=== PATIENT | male | born 1970 | race Caucasian/White ===

== ENCOUNTER → 2019-07-09 07:15 | Outpatient (CLI) | payer BC, SELFPAY ==
--- NOTE | 2019-07-09 | CA_ITS ---
APPROVED REPORT Exam: Exercise Treadmill Technologist: Gaye Rutledge Ht: 6 ft 0 in Wt: 200 lbs BSA: 2.13 m2 HR: 52 bpm BP: 134/75 mmHg Indications: Chest pain Medical History Medications: Aspirin,,,,, Pravastatin,,,,, Metformin,,,,, INSULIN,,,,, Multivitamin,,,,, TricEBA,,,,, BenzOpril,,,,, Stress Test Details Test: Feliz HR Resting HR: 54 bpm Max Heart Rate (APMHR): 169 bpm Max HR Achieved: 166 bpm Target HR (85% APMHR): 143 bpm % of APMHR: 98 Recovery HR: 77 bpm BP Resting BP: 134.0/75.0 mmHg Max BP: 200.0/70.0 mmHg Recovery BP: 153.0/68.0 mmHg ECG Clinical Exercise duration: 14:00 min Highest Stage Achieved: Exercise capacity: 14.8 METs Stress ECG Conclusion Resting ECG: Sinus bradycardia, right axis deviation, PAC Patient exercised 14:00 on Feliz Protocol. Test stopped due to shortness of air. Symptoms: No chest pain. Arrhythmias/Ectopy: Occasional PAC, Occasional PVC Less than 1.[address] segment depression noted from the baseline EKG. Conclusion: The EKG portion of the exercise treadmill test is negative for ischemia.. Excellent exercise tolerance. Myoview images reported separately. Test Summary Stage 4 03:00 16.0 4.2 136 . . . . REST . . . . . . . Standing REST 03:58 0.0 0.0 54 . 134/ 75 . . Stage 1 01:00 10.0 1.7 88 . . . . Stage 1 02:00 10.0 1.7 87 . . . . Stage 1 03:00 10.0 1.7 89 . . . . Stage 2 01:00 12.0 2.5 97 . 164/ 70 . . Stage 2 02:00 12.0 2.5 98 . 164/ 70 . . Stage 2 03:00 12.0 2.5 102 . 186/ 68 . . Stage 3 01:00 14.0 3.4 116 . . . . Stage 3 02:00 14.0 3.4 118 . . . . Stage 3 03:00 14.0 3.4 119 . 200/ 70 . . Stage 4 01:00 16.0 4.2 127 . . . . Stage 4 02:00 16.0 4.2 132 . . . . Stage 4 03:00 16.0 4.2 136 . . . . Stage 5 . . . . . . . Myoview Injected Stage 5 01:00 18.0 5.0 153 . . . . Stage 5 02:00 18.0 5.0 164 . . . Stop exercise at 14:00 RECOVERY 01:00 0.0 0.0 144 . 180/ 70 . . RECOVERY 02:00 0.0 0.0 83 . 180/ 70 . . RECOVERY 03:00 0.0 0.0 76 . 180/ 70 . . RECOVERY 04:00 0.0 0.0 76 . 192/ 70 . . RECOVERY 05:00 0.0 0.0 74 . 192/ 70 . . RECOVERY 05:59 0.0 0.0 75 . 153/ 68 . . Electronically signed by : Jamari Garcia, 07/16/2019 15:36:38
--- NOTE | 2019-07-09 07:19 | NM_ITS ---
APPROVED REPORT Exam: Nuclear Stress Test Indication: Chest pain, DM, High cholesterol, Family history Patient Location: Outpatient Stress Tech: Gaye Rutledge [place] Tech:Willow Bonilla, ARRT, RT (R)(N) Ht: 6 ft 0 in Wt: 200 lbs HR: 52 bpm BP: 134/75 mmHg BSA: 2.13 m2 History: Chest pain, DM, High cholesterol, Family history Procedure: Patient exercised on Feliz protocol 14:00 minutes and sec, resting heart rate 52 bpm, resting blood pressure 134/75 mmHg, with exercise maximum heart rate achived was 166 bpm which is % of the maximum predicted heart rate and blood pressure was 200/70 mmHg. Test was stopped due to SOA. Patient denied any complaint of chest pain. Patient has Excellent exercise capacity, achieved 14.8 METs of workload on treadmill, the blood pressure response to exercise was Adequate. Electrocardiogram Resting electrocardiogram showed sinus rhythm, with exercise there is less than 1.[address] segment depression noted from the baseline EKG. The EKG portion of the exercise Myoview is negative for ischemia. Cardiac Stress and Resting SPECT Images: Cardiac Stress and Resting SPECT images were obtained using technetium 99m Myoview 31.0 mCi stress and 10.47 mCi at rest. Gated SPECT with analysis of segmental wall motion and calculation of the ejection fraction also done. Cardiac stress and resting SPECT images show mild fixed defect in the inferior wall with normal contractility and the gated SPECT is likely secondary to soft tissue attenuation, no reversible ischemia seen. Computer derived ejection fraction is 62% with no regional wall motion abnormality. Conclusion: 1. The EKG portion of the exercise Myoview is negative for ischemia, patient has excellent exercise capacity achieved 14.8 mets of workload on treadmill, the blood pressure response to exercise was adequate, there was no exercise-induced chest discomfort. 2. No scintigraphic evidence of reversible ischemia seen at this level of exercise, computer derived ejection fraction is 62% with no regional wall motion abnormality, right ventricle is normal size and contractility. 3. Normal exercise Myoview study. Electronically signed by : Jamari Garcia, 07/19/2019 11:50:05
--- NOTE | 2019-07-09 07:39 | HMH.ITSHM ---
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 []INSULIN TRICEBA METFORMIN BENZOPRIL MULTIVITAMIN ASA
== END ==
PROVIDERS: PCP Internal Medicine Adolescent Medicine; Visit Provider Internal Medicine Adolescent Medicine
DX: R07.9 Chest pain, unspecified (principal); E10.9 Type 1 diabetes mellitus without complications
CPT/HCPCS: 78452; 93017; A9502

== ENCOUNTER 2020-02-14 11:00 | Outpatient (RCR) | payer BC, SELFPAY ==
--- NOTE | 2020-02-07 11:59 | HMH.OTEV ---
PHYSICIAN CERTIFICATION: I certify the specified therapy services for Gibran Jovon are required, authorized, and reviewed every 30 days.
== END 2020-02-14 11:05 | disposition home or self-care (01) ==
LOC: OT 11:00
PROVIDERS: PCP Internal Medicine Adolescent Medicine; Visit Provider Internal Medicine Adolescent Medicine
DX: M75.102 Unspecified rotator cuff tear or rupture of left shoulder, not specified as traumatic (principal)
CPT/HCPCS: 97014; 97033; 97035; 97110; 97165; G0283

== ENCOUNTER → 2020-02-21 15:45 | Outpatient (CLI) | payer BC, SELFPAY ==
--- NOTE | 2020-02-21 15:54 | XR_ITS ---
PROCEDURE: XR SHOULDER LT MIN 2V CLINICAL INDICATION: ROTATOR CUFF SYNDROME OF L SHOULDER Pain COMPARISON: No exams were available for comparison FINDINGS: No fracture or dislocation. No lytic or blastic change. There is normal mineralization. The joint spaces are well-preserved. No significant degenerative/arthritic changes. No erosive changes evident. Other findings:None. IMPRESSION: No acute findings. Dictated b Kee Gomes MD 02/21/2020 17:13 Kee Gomes MD in [place] 02/21/2020 17:13
== END ==
PROVIDERS: PCP Internal Medicine Adolescent Medicine; Visit Provider Internal Medicine Adolescent Medicine
DX: M75.102 Unspecified rotator cuff tear or rupture of left shoulder, not specified as traumatic (principal)
CPT/HCPCS: 73030

== ENCOUNTER 2020-07-26 12:27 | Emergency (ER) | payer BC, SELFPAY ==
[2020-07-26 13:55] VITALS: BP 117/74; PULSE 68; RESP 18; TEMP 37; O2SAT 98; BMI 25.7
[2020-07-26 14:09] VITALS: BP 117/74; PULSE 68; RESP 18; TEMP 37; O2SAT 98
--- NOTE | 2020-07-26 14:09 | HMH.EDUTC ---
[facility] [place] Disposition Clinical Impression: Encounter for laboratory testing for COVID-19 virus Disposition: Home, Self-Care Condition on Discharge: Good Instructions: DI for COVID-19 (Suspected or Confirmed ), Coronavirus Disease 2019, Preventing the Spread of Coronavirus Discharge Instructions Additional Instructions: *Monitor Temp, Over the counter Motrin or Tylenol as directed/as needed Tylenol every 4 hours and Motrin every 6 hours (as long as your family doctor has told you that you can take it) for fever or pain. and straight to ER if unable to lower temp less than 101.0 after medication given *Warm salt water gargles may help to soothe the throat *Throat Lozenges *Warm fluids like tea with honey may help to soothe the throat *Sleep elevated *Humidifier/Vaporizer Follow up IMMEDIATELY for new or worsening symptoms or no Noticeable improvement over the next 48-72 hours. 911 for difficulty breathing or swallowing You were tested for today for COVID19 your test result should be back in the next 24-48 hours, you may call to the [facility] to see if your test results are back in the next 48 hours [phone] [facility] hours are 9am-9pm You was given a handout with instructions for Self Quarantine and Self isolation for while you wait on test results and what to do if they are positive If you are positive the Health Dept will be contacting you also Referrals: Krishna Magallon MD [Primary Care Provider] - As needed Forms: Work/School Release Time of Disposition: 14:16 Medical Decision Making - Jose Inquiry Pt receiving controlled substance: No Jose was queried for this patient: No Vital Signs: 07/26/20 13:55 Temperature 98.6 F Temperature Source Oral Pulse Rate [Right Brachial] 68 Respiratory Rate 18 Blood Pressure [Right Arm] 117/74 Blood Pressure Mean [Right Arm] 88 Blood Pressure Source [Right Arm] Automatic Cuff Blood Pressure Position [Right Arm] Sitting 02 Sat by Pulse Oximetry 98 Oxygen Delivery Method Room Air Orders (Tests/Meds): ORDERS Category Date Time Status Covid-19 Nasal PCR ([facility]) Routine Lab 07/26/20 14:04 Ordered [facility] [place] HPI - General Stated complaint: covid symptoms Time Seen by Provider: 07/26/20 14:09 Mode of Arrival: Ambulatory Source of Information: Patient Limitations: No Limitations Description of Symptoms (Recalled from Triage Doc. by RN): PATIENT C/O FEVER, CHILLS, AND HEADACHE SINCE THIS MORNING. REQUESTING COVID TEST HEENT Symptoms (Recalled from RN notes): Yes Resp Symptoms (Recalled from RN notes): No Skin Symptoms (Recalled from RN notes): No MS Symptoms (Recalled from RN notes): No Functional Status (Recalled from RN notes): WNL - History of Present Illness Provider Complaint: Patient states that he started feeling bad this morning States that he has been having fever, chills, body aches and over all not feeling well States that he was worried that he may habe COVID so he came in to get tested - Related Data Home Medications Medication Instructions Recorded Confirmed Aspirin [Aspir 81] 81 mg PO HS 06/28/18 06/29/18 Insulin Aspart [Novolog] 5 unit SQ BID 06/28/18 06/29/18 Insulin NPH Hum/Reg Insulin Hm 10 unit SQ HS 06/28/18 06/29/18 [Novolin 70-30 100 Unit/ml Vial] Levothyroxine Sodium [Synthroid 50 mcg PO DAILY 06/28/18 06/29/18 50mcg (0.05mg) tab] Metformin HCl [Fortamet] 1,000 mg PO DAILY 06/28/18 06/29/18 Multivitamin [Multivitamins] 1 each PO DAILY 06/28/18 06/29/18 Pravastatin Sodium 80 mg PO HS 06/28/18 06/29/18 Vit C/Ascorb Sod/Multivit-Min 500 mg PO DAILY 06/28/18 06/29/18 [Emergen-C 500 mg Chewable Tab] Allergies Allergy/AdvReac Type Severity Reaction Status Date / Time No Known Allergies Allergy Verified 07/26/20 14:08 - Worker's Comp Is this a Worker's Comp case?: No [facility] History - Hepatitis A Screen Drug use history?: No High risk sexual behaviors?: No History of sexually transmitted infection?: No Currently employed?:
--- NOTE | 2020-07-26 21:27 | PC.NURSE ---
ATTEMPTED AT THIS TIME TO CALL PATIENT AND NOTIFY OF POSITIVE COVID TEST. NO ANSWER. WILL CALL BACK TOMORROW MORNING
--- NOTE | 2020-07-27 09:23 | PC.NURSE ---
patient notified of positive covid results
== END 2020-07-26 14:10 | disposition home or self-care (01) ==
PROVIDERS: Emergency Provider Nurse Practitioner; PCP Internal Medicine Adolescent Medicine
DX: U07.1 COVID-19 (principal); E11.9 Type 2 diabetes mellitus without complications; E78.5 Hyperlipidemia, unspecified; I10 Essential (primary) hypertension; Z79.4 Long term (current) use of insulin; Z79.84 Long term (current) use of oral hypoglycemic drugs; Z79.899 Other long term (current) drug therapy
CPT/HCPCS: 99202; G0463; U0003

== ENCOUNTER 2023-07-01 07:27 | Emergency (ER) | payer BC, SELFPAY ==
[2023-07-01 07:28] VITALS: BP 144/83; PULSE 56; RESP 16; TEMP 36.7; O2SAT 98; BMI 25.0
--- NOTE | 2023-07-01 07:28 | ECG_ITS ---
APPROVED REPORT Exam: Resting ECG HR:61 bpm ECG Measurements Heart Rate 61 AXES NM 152 P 58 QRSd 104 QRS 93 QT 396 T 67 QTc 398 Conclusion SINUS RHYTHM BORDERLINE RIGHT AXIS DEVIATION [QRS AXIS > 90] ST ELEVATION, PROBABLY EARLY REPOLARIZATION [ST ELEVATION WITH NORMALLY INFLECTED T-WAVE] BORDERLINE ECG UNCONFIRMED REPORT Electronically signed by : Krishna Magallon MD 07/02/2023 07:34:18
--- NOTE | 2023-07-01 07:29 | XR_ITS ---
PROCEDURE INFORMATION: Exam: XR Chest Exam date and time: 07/01/2023 7:45 AM Age: 53 years old Clinical indication: Pain; Other: Cp; Additional info: Chest pain TECHNIQUE: Imaging protocol: Radiologic exam of the chest. Views: 2 views. COMPARISON: CR XR SHOULDER LT MIN 2V 02/21/2020 4:08 PM FINDINGS: Lungs: Unremarkable. No consolidation. Pleural spaces: Unremarkable. No pleural effusion. No pneumothorax. Heart/Mediastinum: Unremarkable. No cardiomegaly. Bones/joints: Unremarkable. IMPRESSION: No acute findings.
--- NOTE | 2023-07-01 07:42 | XR_ITS ---
PROCEDURE INFORMATION: Exam: XR Left Shoulder Exam date and time: 07/01/2023 7:48 AM Age: 53 years old Clinical indication: Pain; Shoulder; Left; Additional info: L shoulder pain, atraumatic TECHNIQUE: Imaging protocol: Radiologic exam of the left shoulder. Views: 2 or more views. COMPARISON: CR XR SHOULDER LT MIN 2V 02/21/2020 4:08 PM FINDINGS: Bones/joints: Normal. Soft tissues: Normal. IMPRESSION: No acute findings.
--- NOTE | 2023-07-01 07:42 | PC.NURSE ---
DR LAWLER AT BEDSIDE
--- NOTE | 2023-07-01 07:44 | HMH.EDGENADL ---
Discharge Plan Disposition Patient Disposition: Home, Self-Care Condition: Good Prescriptions Prescriptions: No Action insulin NPH and regular human [Novolin 70/30 U-100 Insulin] 100 UNIT/ML Vial 10 unit SQ HS aspirin [Aspir-81] 81 MG Tablet.Dr 81 mg PO HS pravastatin 80 MG Tablet 80 mg PO HS levothyroxine [Synthroid] 50 MCG Tablet 50 mcg PO DAILY multivitamin 1 EACH Capsule 1 ea PO DAILY insulin aspart U-100 [Novolog PenFill U-100 Insulin] 100 UNIT/ML Cartridge 5 unit SQ BID metformin [Fortamet] 1,000 MG Tab.Er.24 1,000 mg PO DAILY vitamin L-geecmezhuakt-ajgwpbu [Emergen-C] 500 MG Tab.Chew 500 mg PO DAILY Referrals Follow up/Referrals: Krishna Magallon MD [Primary Care Provider] - See instructions Activity Restrictions/Add. Instructions Additional Instructions/Restrictions: You were evaluated in the emergency department today. At this time, we feel that your pain is likely musculoskeletal, however we recommend continued close outpatient follow-up with your primary care provider to ensure that you are still doing well. Take Tylenol and ibuprofen at home as needed for pain. If the pain continues, do not hesitate to come back to the emergency department for evaluation or to seek follow-up with orthopedics for further evaluation and management. Return to the emergency department for new or worsening symptoms. We hope you feel better! Clinical Impressions Clinical Impression: Acute pain of left shoulder Instructions Patient Instructions: DI for Atypical Chest Pain, DI for Acute Pain -- Adult, DI for Shoulder Pain Discharge ED Provider: Apurva Robbins General Adult HPI General Chief complaint: PAIN Stated complaint: Chest Pain Time Seen by Provider: 07/01/23 07:28 Mode of Arrival: Ambulatory Source of Information: Patient Limitations: No Limitations Description of Symptoms (Recalled from ER Triage Doc. by RN): PT REPORTS WAKING WITH TIGHTNESS IN LEFT SHOULDER. PAIN DOES NOT RADIATE. DENIES CHEST PAIN, DENIES SOA, DENIES N/V. HAD SIMILAR EPISODE LAST WEEK. LASTED ABOUT 30 MINUTES, RESOLVED History of Present Illness HPI narrative: This patient is a 53-year-old male with a history of insulin-dependent diabetes, hypothyroidism, and hyperlipidemia presenting to the emergency department for evaluation with concern for left shoulder pain. He notes that he had a similar episode approximately 1 week ago that resolved spontaneously, however for the last 2 hours he has had significant tightness in his left shoulder that radiates down his left arm. He denies any recent injuries, repetitive use, or other concerns that could have precipitated this pain. He states that it is difficult to localize and quantify. He has a history of right shoulder impingement, but he states that this feels different. He notes that he is very physically active but has not had recent increase in exercise. He denies any neck pain, back pain, numbness, tingling, shortness of breath, nausea, abdominal pain, or other concerns. He has difficulty raising his left arm above his head but denies any other concerns. Related Data Home Medications Medication Instructions Recorded Confirmed aspirin 81 mg tablet,delayed 81 mg PO HS thinner 06/28/18 06/29/18 release (Aspir-) insulin aspart U-100 100 unit/mL 5 unit SQ BID Diabetes 06/28/18 06/29/18 subcutaneous cartridge (Novolog PenFill U-100 Insulin aspart) insulin human U-100 NPH-regulr 10 unit SQ HS diabtes 06/28/18 06/29/18 70-30 mix 100 unit/mL subcutaneous susp (Novolin 70/30 U-100 Insulin) levothyroxine 50 mcg tablet 50 mcg PO DAILY thyroid 06/28/18 06/29/18 (Synthroid) metformin 1,000 mg tablet,extended 1,000 mg PO DAILY diabtes 06/28/18 06/29/18 release 24hr (osmotic) (Fortamet) multivitamin 1 ea PO DAILY Supplement 06/28/18 06/29/18 pravastatin 80 mg tablet 80 mg PO HS choelsterol 06/28/18 06/29/18 vitamin C 500 mg-multivitamin with
[2023-07-01 07:45] LABS: Basophils % 0.8 % (0.1-2.0); Eosinophils # 0.2 K/mm3 (0.0-0.4); Hematocrit 44.2 % (42.0-52.0); Hemoglobin 14.8 g/dL (14.1-18.0); Lymphocytes # 1.7 K/mm3 (0.7-4.5); Lymphocytes % 35.7 % (10-50); Mean Corpuscular HGB Conc 33.4 g/dL (31.8-35.4); Mean Corpuscular Hemoglobin 31.3 pg (27.0-31.2); Mean Corpuscular Volume 93.6 fl (80-94); Mean Platelet Volume 8.3 fl (7.4-10.4); Monocytes # 0.3 K/mm3 (0.1-1.0); Monocytes % 6.7 % (1.7-9.3); Neutrophils # 2.5 K/mm3 (1.8-7.8); Neutrophils % 52.9 % (37.0-80.0); Platelet Count 177 K/mm3 (142-424); Red Blood Count 4.73 M/mm3 (4.60-6.20); Red Cell Distribution Width 13.1 % (11.5-17.5); White Blood Count 4.8 K/mm3 (4.8-10.8)
[2023-07-01 07:47] LABS: Chloride 106 mmol/L (98-107); Potassium 4.3 mmoL/L (3.5-5.1); Sodium 140 mmol/L (136-145)
[2023-07-01 07:49] LABS: Alanine Aminotransferase 49 U/L (12-78); Aspartate Amino Transferase 42 U/L (17-59); Blood Urea Nitrogen 23 mg/dl (9-20); Creatinine Clearance Estimated 99 mL/min (50-200); Estimated Glomerular Filt Rate 78 ml/min (>60); GFR (African American) 94 ML/MIN (>60)
[2023-07-01 07:50] LABS: Albumin Level 4.5 g/dl (3.5-5.0); Albumin/Globulin Ratio 1.9 (1.1-1.8); Alkaline Phosphatase 63 U/L (38-126); Anion Gap 8.3 mEq/L (5-15); Bilirubin,Total 0.6 mg/dl (0.2-1.3); Calcium 9.1 mg/dl (8.4-10.2); Carbon Dioxide 30 mmol/L (22.0-30.0); Globulin 2.4 g/dL (1.3-3.2); Glucose 130 mg/dl (74-100); Lipase 87 U/L (23-300); Total Protein,Serum 6.9 g/dl (6.3-8.2)
[2023-07-01 08:02] LABS: Troponin I < 0.01 ng/ml (0.00-0.034)
[2023-07-01 08:23] VITALS: BP 120/78; PULSE 58; RESP 18; O2SAT 97
[2023-07-01 08:30] VITALS: BP 125/76; PULSE 63; RESP 14; O2SAT 99
--- NOTE | 2023-07-01 08:57 | PC.NURSE ---
DR LAWLER AT BEDSIDE TO UPDATE PT
[2023-07-01 09:06] VITALS: BP 116/72; PULSE 60; RESP 15; TEMP 36.7; O2SAT 99
== END 2023-07-01 09:16 | disposition home or self-care (01) ==
PROVIDERS: Emergency Provider Emergency Medicine; PCP Internal Medicine Adolescent Medicine
DX: M25.512 Pain in left shoulder (principal); M79.602 Pain in left arm; E11.9 Type 2 diabetes mellitus without complications; E03.9 Hypothyroidism, unspecified; E78.5 Hyperlipidemia, unspecified
CPT/HCPCS: 71046; 73030; 80053; 83690; 84484; 85025; 93005; 96374; 99285

== ENCOUNTER → 2023-07-03 13:55 | Outpatient (CLI) | payer BC, SELFPAY ==
--- NOTE | 2023-07-03 14:02 | XR_ITS ---
FINAL REPORT CLINICAL HISTORY: ROTATOR CUFF SYNDROME,RT SHOULDER PAIN COMPARISON: None FINDINGS: RIGHT SHOULDER Four views demonstrate no acute fracture or dislocation. The visualized joint spaces are normally aligned. The soft tissues are unremarkable. IMPRESSION: No acute process. Reviewed, Interpreted and Dictated by Matt Esquivel MD Transcribed by Aida Duran Authenticated and . [facility]
== END ==
PROVIDERS: PCP Internal Medicine Adolescent Medicine; Visit Provider Internal Medicine Adolescent Medicine
DX: M75.101 Unspecified rotator cuff tear or rupture of right shoulder, not specified as traumatic (principal); M25.511 Pain in right shoulder
CPT/HCPCS: 73030

== ENCOUNTER 2024-12-06 10:30 | Outpatient (CLI) | payer BC, SELFPAY ==
--- NOTE | 2024-12-06 10:38 | XR_ITS ---
FINAL REPORT CLINICAL HISTORY: SCOLIOSIS OF L-SPINE pt states low back pain, denies surgery COMPARISON: None FINDINGS: LUMBOSACRAL SPINE SERIES Five views of the lumbosacral spine were obtained. There is no fracture present. There is no malalignment. Mild disc space narrowing in the upper lumbar spine. Lower lumbar disc spaces are well preserved. IMPRESSION: Mild degenerative changes without acute process. Reviewed, Interpreted and Dictated by Gianni Allison MD Transcribed by Aida Duran Authenticated and [facility]
== END 2024-12-06 23:59 | disposition home or self-care (01) ==
LOC: RAD 10:34
PROVIDERS: PCP Internal Medicine Adolescent Medicine; Visit Provider Internal Medicine Adolescent Medicine
DX: M47.816 Spondylosis without myelopathy or radiculopathy, lumbar region (principal); M41.9 Scoliosis, unspecified
CPT/HCPCS: 72110